=== PATIENT | male | born 1985 | race Two or more races ===

== ENCOUNTER 2024-04-28 01:38 | Inpatient (IN) | payer OTHER ==
[~2024-04-28] VITALS: Ht 170.2 cm; Wt 113.6 kg
[2024-04-28] MEDS: SODIUM CHLORIDE 0.9% 1,000 ML IV ONE (02:46)
[2024-04-28] MEDS: CefTRIAXone 1 GM/DEXTROSE 50 ML IV ONE (02:47)
[2024-04-28 02:54] LABS: BASOPHILS % (AUTO) 0.3 % (0.0-2.0); HEMATOCRIT 36.5 % (41-53); HEMOGLOBIN 12.3 g/dL (13.5-17.5); LYMPHOCYTES # (AUTO) 2.4 K/uL (1.0-4.8); LYMPHOCYTES % (AUTO) 25.5 % (22.0-44.0); MEAN CORPUSCULAR HEMOGLOBIN 32.9 pg (26.0-34.0); MEAN CORPUSCULAR HGB CONC 33.6 G/dL (31.0-37.0); MEAN CORPUSCULAR VOLUME 98 fL (80-100); MONOCYTES # (AUTO) 1.3 K/uL (0.1-1.0); MONOCYTES % (AUTO) 13.4 % (2.0-9.0); NEUTROPHILS # (AUTO) 5.5 K/uL (1.8-7.7); NEUTROPHILS % (AUTO) 58.8 % (40.0-70.0); PLATELET COUNT (AUTO) 268 K/uL (150-450); RED BLOOD CELL COUNT(AUTO) 3.72 MIL/uL (4.50-5.90); RED CELL DISTRIBUTION WIDTH 12.9 % (11.5-14.5); WHITE BLOOD COUNT (AUTO) 9.4 K/uL (4.5-11.0)
[2024-04-28 02:59] LABS: ANION GAP 8 mmol/L (8-16); CALCIUM, TOTAL 8.6 mg/dL (8.8-10.5); CARBON DIOXIDE 29 mmol/L (22-29); CHLORIDE 100 mmol/L (98-107); CREATININE 0.96 mg/dL (0.60-1.30); GLOMERULAR FILTR. RATE CALC > 60 mL/min (>60); GLUCOSE,RANDOM 93 mg/dL (70-110); SODIUM SERUM 137 mmol/L (136-145); UREA NITROGEN, BLOOD 12 mg/dL (7-18)
[2024-04-28] MEDS: DOXYCYCLINE HYCLATE 100 MG in DEXTROSE 5%-WATER 100 ML IV ONE (02:59)
[2024-04-28] MEDS ORDERED: SODIUM CHLORIDE 0.9% 100 ML ONE (03:00)
[2024-04-28] MEDS ORDERED: IOHEXOL 350 MG/ML 100 ML VIAL ONE (03:00)
[2024-04-28 03:04] LABS: ALANINE AMINOTRANSFERASE 18 U/L (12-78); ALBUMIN 2.6 g/dL (3.4-5.0); ALKALINE PHOSPHATASE 90 U/L (46-116); ASPARTATE AMINOTRANSFERASE 15 U/L (15-37); BILIRUBIN,TOTAL 0.3 mg/dL (0.1-1.0); TOTAL PROTEIN, SERUM 9.7 g/dL (6.4-8.2)
[2024-04-28 03:06] LABS: LACTIC ACID 0.8 mmol/L (0.4-2.0)
[2024-04-28] MEDS ORDERED: ACETAMINOPHEN 325 MG TABLET PO PRN (04:15)
[2024-04-28] MEDS ORDERED: ONDANSETRON HCL 4 MG/2 ML VIAL IVP PRN (04:15)
[2024-04-28 05:01] LABS: APPEARANCE,URINE CLEAR (CLEAR); BILIRUBIN,URINE NEGATIVE (NEGATIVE); COLOR,URINE LIGHT YELLOW (YELLOW); GLUCOSE, URINE (UA) NEGATIVE (NEGATIVE); KETONES,URINE NEGATIVE (NEGATIVE); LEUKOCYTE ESTERASE ,URINE TRACE (NEGATIVE); NITRATE,URINE NEGATIVE (NEGATIVE); OCCULT BLOOD,URINE NEGATIVE (NEGATIVE); PH,URINE 6.5 (5.0-8.0); PROTEIN,URINE NEGATIVE (NEGATIVE); SPECIFIC GRAVITIY, URINE 1.034 (1.003-1.030); UROBILINOGEN,URINE <=1.0 mg/dL (<=1.0)
[2024-04-28] MEDS: VANCOMYCIN 1.75GM/WATER(PEG) 350 ML IV ONE (05:25)
[2024-04-28 05:34] LABS: BACTERIA,URINE None Seen /HPF (None Seen); RBC,URINE None Seen /HPF (0-2)
[2024-04-28] MEDS: DEXTROSE 5%-LACTATED RINGERS 1,000 ML IV SCH (07:00)
[2024-04-28 07:50] VITALS: BP 125/80; PULSE 87; RESP 18; TEMP 98.9; O2SAT 97
[2024-04-28] MEDS: HEPARIN SODIUM,PORCINE 5,000 UNITS/ML VIAL SQ SCH (08:53)
[2024-04-28] MEDS: DOCUSATE SODIUM 100 MG CAPSULE PO SCH (08:53)
[2024-04-28] MEDS: VANCOMYCIN 1.25 GM/WATER(PEG) 250 ML IV SCH (15:51)
[2024-04-28 20:13] VITALS: BP 114/66; PULSE 83; RESP 18; TEMP 99; O2SAT 97
[2024-04-28] MEDS ORDERED: SODIUM CHLORIDE 0.9% 1,000 ML ONE (23:51)
[2024-04-29] MEDS: CefTRIAXone 1 GM/DEXTROSE 50 ML IV SCH (03:40)
[2024-04-29] MEDS ORDERED: SODIUM CHLORIDE 0.9% 1,000 ML ONE (05:23)
[2024-04-29 05:28] VITALS: BP 131/70; PULSE 87; RESP 19; TEMP 98.9; O2SAT 96
[2024-04-29 07:24] LABS: BASOPHILS % (AUTO) 0.5 % (0.0-2.0); EOSINOPHILS % (AUTO) 1.3 % (1.0-6.0); HEMATOCRIT 37.6 % (41-53); HEMOGLOBIN 12.5 g/dL (13.5-17.5); LYMPHOCYTES # (AUTO) 1.7 K/uL (1.0-4.8); LYMPHOCYTES % (AUTO) 17.6 % (22.0-44.0); MEAN CORPUSCULAR HEMOGLOBIN 32.1 pg (26.0-34.0); MEAN CORPUSCULAR HGB CONC 33.2 G/dL (31.0-37.0); MEAN CORPUSCULAR VOLUME 97 fL (80-100); MONOCYTES # (AUTO) 1.1 K/uL (0.1-1.0); MONOCYTES % (AUTO) 11.5 % (2.0-9.0); NEUTROPHILS # (AUTO) 6.5 K/uL (1.8-7.7); NEUTROPHILS % (AUTO) 69.1 % (40.0-70.0); PLATELET COUNT (AUTO) 165 K/uL (150-450); RED BLOOD CELL COUNT(AUTO) 3.88 MIL/uL (4.50-5.90); RED CELL DISTRIBUTION WIDTH 12.9 % (11.5-14.5); WHITE BLOOD COUNT (AUTO) 9.4 K/uL (4.5-11.0)
[2024-04-29 07:51] LABS: ANION GAP 6 mmol/L (8-16); CALCIUM, TOTAL 8.6 mg/dL (8.8-10.5); CARBON DIOXIDE 27 mmol/L (22-29); CHLORIDE 103 mmol/L (98-107); CREATININE 0.81 mg/dL (0.60-1.30); GLOMERULAR FILTR. RATE CALC > 60 mL/min (>60); GLUCOSE,RANDOM 97 mg/dL (70-110); POTASSIUM 3.8 mmol/L (3.5-5.1); SODIUM SERUM 136 mmol/L (136-145); UREA NITROGEN, BLOOD 7 mg/dL (7-18)
[2024-04-29 08:05] VITALS: BP 122/70; PULSE 74; RESP 20; TEMP 98.6; O2SAT 100
[2024-04-29 08:38] LABS: VANCOMYCIN,RANDOM 15.6 mcg/mL (25.0-50.0)
[2024-04-29 19:31] VITALS: BP 126/79; PULSE 82; RESP 18; TEMP 98.8; O2SAT 96
[2024-04-30 01:07] LABS: HIV 1-2 SCREEN 4TH GEN W/RFLX Non Reactive (Non Reactive)
[2024-04-30 04:28] VITALS: BP 119/75; PULSE 89; RESP 18; TEMP 98.2; O2SAT 96
[2024-04-30 07:27] LABS: PROTHROMBIN TIME 11.5 SEC (9.4-11.6)
[2024-04-30 07:30] LABS: ANION GAP 7 mmol/L (8-16); CALCIUM, TOTAL 8.6 mg/dL (8.8-10.5); CARBON DIOXIDE 27 mmol/L (22-29); CHLORIDE 101 mmol/L (98-107); CREATININE 0.76 mg/dL (0.60-1.30); GLOMERULAR FILTR. RATE CALC > 60 mL/min (>60); GLUCOSE,RANDOM 98 mg/dL (70-110); POTASSIUM 3.6 mmol/L (3.5-5.1); SODIUM SERUM 135 mmol/L (136-145); UREA NITROGEN, BLOOD 7 mg/dL (7-18)
[2024-04-30 07:43] VITALS: BP 121/73; PULSE 82; RESP 18; TEMP 97.6; O2SAT 96
[2024-04-30 10:20] VITALS: BP 133/79; PULSE 82
[2024-04-30] MEDS ORDERED: MIDAZOLAM HCL 2 MG/2 ML VIAL ONE (10:20)
[2024-04-30] MEDS ORDERED: FentaNYL CITRATE PF 100 MCG/2 ML VIAL ONE (10:20)
[2024-04-30] MEDS ORDERED: LIDOCAINE/PF 1% 30 ML VIAL ONE (10:22)
[2024-04-30] MEDS ORDERED: SODIUM BICARBONATE 50 MEQ/50 ML VIAL ONE (10:22)
[2024-04-30] MEDS: LIDOCAINE 1% 30 ML/SOD BICARB 8.4% 4 ML SQ ONE (10:48)
[2024-04-30] MEDS: MIDAZOLAM HCL 2 MG/2 ML VIAL IVP ONE (10:49)
[2024-04-30] MEDS: FentaNYL CITRATE PF 100 MCG/2 ML VIAL IVP ONE (10:49)
[2024-04-30 10:50] VITALS: BP 132/74; PULSE 76
[2024-04-30 20:00] VITALS: BP 120/74; PULSE 87; RESP 1; RESP 18; TEMP 99.2; O2SAT 97
[2024-05-01 04:55] VITALS: BP 109/64; PULSE 70; RESP 19; TEMP 98.1; O2SAT 96
[2024-05-01 07:45] LABS: ANION GAP 5 mmol/L (8-16); CALCIUM, TOTAL 8.6 mg/dL (8.8-10.5); CARBON DIOXIDE 28 mmol/L (22-29); CHLORIDE 103 mmol/L (98-107); CREATININE 0.78 mg/dL (0.60-1.30); GLOMERULAR FILTR. RATE CALC > 60 mL/min (>60); GLUCOSE,RANDOM 103 mg/dL (70-110); POTASSIUM 3.7 mmol/L (3.5-5.1); SODIUM SERUM 136 mmol/L (136-145); UREA NITROGEN, BLOOD 9 mg/dL (7-18)
[2024-05-01 08:59] VITALS: BP 109/68; PULSE 63; RESP 18; TEMP 97.8; O2SAT 96
[2024-05-01 19:53] VITALS: BP 122/74; PULSE 82; RESP 18; TEMP 98.2; O2SAT 99
[2024-05-02 05:05] VITALS: BP 118/73; PULSE 76; RESP 18; TEMP 97.6; O2SAT 98
[2024-05-02 06:55] LABS: ANION GAP 5 mmol/L (8-16); CALCIUM, TOTAL 8.7 mg/dL (8.8-10.5); CARBON DIOXIDE 29 mmol/L (22-29); CHLORIDE 102 mmol/L (98-107); CREATININE 0.78 mg/dL (0.60-1.30); GLOMERULAR FILTR. RATE CALC > 60 mL/min (>60); GLUCOSE,RANDOM 103 mg/dL (70-110); POTASSIUM 3.7 mmol/L (3.5-5.1); SODIUM SERUM 136 mmol/L (136-145); UREA NITROGEN, BLOOD 8 mg/dL (7-18); VANCOMYCIN,RANDOM 18.4 mcg/mL (25.0-50.0)
[2024-05-02 08:29] VITALS: BP 116/69; PULSE 68; RESP 18; TEMP 98.3; O2SAT 100
[2024-05-02 19:43] VITALS: BP 121/72; PULSE 96; RESP 18; TEMP 98.2; O2SAT 96
[2024-05-03 04:53] VITALS: BP 108/80; PULSE 82; RESP 18; TEMP 98; O2SAT 99
[2024-05-03] MEDS ORDERED: ROCURONIUM BROMIDE 10 MG/ML 5 ML VIAL ONE (06:49)
[2024-05-03] MEDS ORDERED: DEXAMETHASONE SOD PHOS 4 MG/ML VIAL ONE (06:49)
[2024-05-03] MEDS ORDERED: FentaNYL CITRATE PF 100 MCG/2 ML VIAL ONE (06:49)
[2024-05-03] MEDS ORDERED: PROPOFOL 1% 20 ML VIAL IVP ONE (06:49)
[2024-05-03] MEDS ORDERED: LIDOCAINE/PF 2% 5 ML SYRINGE IVP ONE (06:49)
[2024-05-03] MEDS ORDERED: SUGAMMADEX SODIUM 200 MG/2 ML VIAL IVP ONE (06:49)
[2024-05-03] MEDS ORDERED: ONDANSETRON HCL 4 MG/2 ML VIAL ONE (06:49)
[2024-05-03] MEDS ORDERED: MIDAZOLAM HCL 2 MG/2 ML VIAL ONE (06:49)
[2024-05-03 07:25] LABS: ANION GAP 8 mmol/L (8-16); CALCIUM, TOTAL 8.5 mg/dL (8.8-10.5); CARBON DIOXIDE 27 mmol/L (22-29); CHLORIDE 100 mmol/L (98-107); CREATININE 0.88 mg/dL (0.60-1.30); GLOMERULAR FILTR. RATE CALC > 60 mL/min (>60); GLUCOSE,RANDOM 99 mg/dL (70-110); POTASSIUM 3.8 mmol/L (3.5-5.1); SODIUM SERUM 135 mmol/L (136-145); UREA NITROGEN, BLOOD 11 mg/dL (7-18)
[2024-05-03] MEDS ORDERED: RINGERS SOLUTION,LACTATED 1,000 ML IV ONE (13:19)
[2024-05-03] MEDS ORDERED: BUPIVACAINE HCL/PF 0.25% 30 ML VIAL ONE (13:48)
[2024-05-03] MEDS ORDERED: LIDOCAINE/PF 1% 30 ML VIAL ONE (13:49)
[2024-05-03] MEDS ORDERED: CeFAZolin SODIUM 1 GM VIAL ONE (13:50)
[2024-05-03] MEDS ORDERED: LIDOCAINE 2% 11 ML JELLY ONE (13:51)
[2024-05-03] MEDS ORDERED: VANCOMYCIN HCL 1 GM VIAL ONE (13:53)
[2024-05-03] MEDS: CHLORHEXIDINE GLUCONATE 2% TOWELETTE [2'S/6'S] TP ONE (14:33)
[2024-05-03] MEDS: ETHYL ALCOHOL 62% ANTISEPTIC NASAL SANITIZER 0.6 ML AMPUL NASAL ONE (14:33)
[2024-05-03] MEDS: RINGERS SOLUTION,LACTATED 1,000 ML IV ONE (14:34)
[2024-05-03] MEDS ORDERED: FentaNYL CITRATE PF 100 MCG/2 ML VIAL IVP PRN (14:45)
[2024-05-03] MEDS ORDERED: MEPERIDINE-PF 25 MG/ML VIAL IVP PRN (14:45)
[2024-05-03] MEDS ORDERED: HYDROmorphone HCL 2 MG/ML SYRINGE IVP PRN (14:45)
[2024-05-03] MEDS: VANCOMYCIN HCL 1 GM VIAL IRRIG ONE (16:45)
[2024-05-03] MEDS ORDERED: HYDROCODONE/ACETAMINOPHEN 5-325 MG TABLET PO PRN ×2 (17:15)
[2024-05-03 19:32] VITALS: BP 120/77; PULSE 92; RESP 18; TEMP 98.4; O2SAT 95
[2024-05-03] MEDS ORDERED: OXYGEN THERAPY IH SCH (20:00)
[2024-05-03] MEDS: DOXYCYCLINE HYCLATE 100 MG TABLET PO SCH (20:11)
[2024-05-03] MEDS: POTASSIUM CHL 20 MEQ/0.9% NS 1,000 ML IV SCH (20:11)
[2024-05-03 22:44] LABS: BASOPHILS % (AUTO) 0.2 % (0.0-2.0); EOSINOPHILS % (AUTO) 0 % (1.0-6.0); HEMATOCRIT 41.1 % (41-53); HEMOGLOBIN 13.4 g/dL (13.5-17.5); LYMPHOCYTES # (AUTO) 0.9 K/uL (1.0-4.8); LYMPHOCYTES % (AUTO) 6.7 % (22.0-44.0); MEAN CORPUSCULAR HEMOGLOBIN 31.8 pg (26.0-34.0); MEAN CORPUSCULAR HGB CONC 32.7 G/dL (31.0-37.0); MEAN CORPUSCULAR VOLUME 97 fL (80-100); MONOCYTES # (AUTO) 0.3 K/uL (0.1-1.0); MONOCYTES % (AUTO) 2.3 % (2.0-9.0); PLATELET COUNT (AUTO) 143 K/uL (150-450); RED BLOOD CELL COUNT(AUTO) 4.23 MIL/uL (4.50-5.90); RED CELL DISTRIBUTION WIDTH 12.9 % (11.5-14.5); WHITE BLOOD COUNT (AUTO) 13.2 K/uL (4.5-11.0)
[2024-05-03 22:52] LABS: ANION GAP 8 mmol/L (8-16); CARBON DIOXIDE 27 mmol/L (22-29); CHLORIDE 99 mmol/L (98-107); CREATININE 1.12 mg/dL (0.60-1.30); GLOMERULAR FILTR. RATE CALC > 60 mL/min (>60); GLUCOSE,RANDOM 151 mg/dL (70-110); POTASSIUM 4.4 mmol/L (3.5-5.1); SODIUM SERUM 134 mmol/L (136-145); UREA NITROGEN, BLOOD 11 mg/dL (7-18)
[2024-05-03 22:54] LABS: NEUTROPHILS % (AUTO) 90.8 % (40.0-70.0)
[2024-05-04 03:14] VITALS: BP 122/58; PULSE 74; RESP 18; TEMP 98.1; O2SAT 93
[2024-05-04 07:23] VITALS: BP 129/66; PULSE 64; RESP 18; TEMP 97.5; O2SAT 97
[2024-05-04 07:58] LABS: ANION GAP 6 mmol/L (8-16); CALCIUM, TOTAL 8.7 mg/dL (8.8-10.5); CARBON DIOXIDE 26 mmol/L (22-29); CHLORIDE 101 mmol/L (98-107); CREATININE 0.83 mg/dL (0.60-1.30); GLOMERULAR FILTR. RATE CALC > 60 mL/min (>60); GLUCOSE,RANDOM 115 mg/dL (70-110); POTASSIUM 4.3 mmol/L (3.5-5.1); SODIUM SERUM 133 mmol/L (136-145); UREA NITROGEN, BLOOD 9 mg/dL (7-18)
[2024-05-04] MEDS: OxyCODONE HCL/ACETAMINOPHEN 5-325 MG TABLET PO PRN (15:42)
[2024-05-04 16:22] VITALS: BP 101/67; PULSE 65; RESP 18; TEMP 97.8; O2SAT 98
[2024-05-04 19:40] VITALS: BP 111/61; PULSE 60; RESP 18; TEMP 97.7; O2SAT 98
[2024-05-05 04:35] VITALS: BP 114/70; PULSE 58; RESP 18; TEMP 97.7; O2SAT 99
[2024-05-05 07:30] VITALS: BP 127/79; PULSE 55; RESP 18; TEMP 97.9; O2SAT 98
[2024-05-05 08:12] LABS: ANION GAP 7 mmol/L (8-16); CALCIUM, TOTAL 8.7 mg/dL (8.8-10.5); CARBON DIOXIDE 28 mmol/L (22-29); CHLORIDE 102 mmol/L (98-107); CREATININE 0.89 mg/dL (0.60-1.30); GLOMERULAR FILTR. RATE CALC > 60 mL/min (>60); GLUCOSE,RANDOM 94 mg/dL (70-110); POTASSIUM 3.8 mmol/L (3.5-5.1); SODIUM SERUM 137 mmol/L (136-145); UREA NITROGEN, BLOOD 10 mg/dL (7-18)
[2024-05-05] MEDS ORDERED: DOXY-354 PO (12:34)
[2024-05-05] MEDS ORDERED: CEPH-558 PO (12:34)
[2024-05-05] MEDS: VANCOMYCIN HCL 1.25 GM in DEXTROSE 5%-WATER 250 ML IV SCH (16:13)
[2024-05-05] MEDS ORDERED: SODIUM CHLORIDE 0.9% 250 ML IV ONE (16:17)
== END 2024-05-05 21:21 | DRG 709 ==
LOC: EMS 01:38 → EDH 04:12 → UNDOADMIN 06:15 → EDH 07:51 → 6S 07:51
PROVIDERS: ADMIT Internal Medicine; ATTEND Internal Medicine
PROC: 079 Lymphatic and Hemic Systems, Drainage (ICD-10-PCS; 2024-04-30)
PROC: 079 Lymphatic and Hemic Systems, Drainage (ICD-10-PCS; 2024-04-30)
PROC: 0J9C0ZZ Drainage of Pelvic Region Subcutaneous Tissue and Fascia, Open Approach (ICD-10-PCS; 2024-05-03)
PROC: 0VCS0ZZ Extirpation of Matter from Penis, Open Approach (ICD-10-PCS; principal; 2024-05-03 16:00)
DX: T19.4XXA Foreign body in penis, initial encounter (principal); L02.214 Cutaneous abscess of groin; E66.9 Obesity, unspecified; Z68.39 Body mass index [BMI] 39.0-39.9, adult; Z82.3 Family history of stroke; N48.22 Cellulitis of corpus cavernosum and penis; I88.9 Nonspecific lymphadenitis, unspecified; A55 Chlamydial lymphogranuloma (venereum); N48.21 Abscess of corpus cavernosum and penis; N48.89 Other specified disorders of penis; F14.90 Cocaine use, unspecified, uncomplicated; W44.8XXA Other foreign body entering into or through a natural orifice, initial encounter; Z53.20 Procedure and treatment not carried out because of patient's decision for unspecified reasons
CPT/HCPCS: 74177; 75989; 80048; 80076; 80202; 81001; 83605; 83735; 85025; 85610; 86592; 87015; 87040; 87070; 87081; 87101; 87205; 87206; 87389; 87491; 87591; 99285; J0690; J0696; J1100; J1644; J2250; J2405; J2704; J3010; J3370; J3480; J3490; J7030; J7050; J7060; J7120; 36415-L1; 36415-TC